=== PATIENT | female | born 1980 | race Caucasian/White ===

== ENCOUNTER 2021-07-25 11:32 | Emergency (ER) | payer OTHER | END 2021-07-25 11:58 | disposition left against medical advice (07) | LOC: M.ERS 11:32 | DX: M79.675 Pain in left toe(s) (principal); Z53.21 Procedure and treatment not carried out due to patient leaving prior to being seen by health care provider ==

== ENCOUNTER 2021-11-22 16:20 | Emergency (ER) | payer OTHER ==
[~2021-11-22] VITALS: Ht 167.6 cm; Wt 78.0 kg
[2021-11-22] MEDS ORDERED: BUDESONIDE0.25 MG/2 INH (17:34)
[2021-11-22] MEDS ORDERED: CLONAZEPAM 0.50.5 M1 PO (17:35)
[2021-11-22] MEDS ORDERED: BUPROPION XL300 MG PO (17:35)
[2021-11-22] MEDS ORDERED: TRAZODONE HCL50 MG PO (17:36)
[2021-11-22] MEDS ORDERED: BUSPIRONE HCL10 MG PO (17:36)
[2021-11-22] MEDS ORDERED: LAMOTRIGINE250 MG PO (17:36)
[2021-11-22] MEDS ORDERED: VITAMIN B-2100 MG PO (17:37)
[2021-11-22] MEDS ORDERED: BUMEX2 MG PO (17:38)
[2021-11-22] MEDS ORDERED: NEURONTIN 400M400 M2 PO (17:39)
[2021-11-22] MEDS ORDERED: NURTEC ODT75 MG PO (17:39)
[2021-11-22] MEDS ORDERED: FARXIGA10 MG PO (17:40)
[2021-11-22] MEDS ORDERED: HYOSCYAMINE0.125 MG PO (17:40)
[2021-11-22] MEDS ORDERED: KLOR-CON M2020 MEQ PO (17:40)
[2021-11-22] MEDS ORDERED: CARISOPRODOL350 MG PO (17:40)
[2021-11-22] MEDS ORDERED: FLONASE 0.05%50 MCG NASAL (17:42)
[2021-11-22] MEDS ORDERED: METOLAZONE 5 MG5 MG PO (17:42)
[2021-11-22] MEDS ORDERED: LOVENOX80 MG/0.8 SUBQ (17:42)
[2021-11-22] MEDS ORDERED: B-12 DOTS500 MCG PO (17:43)
[2021-11-22] MEDS ORDERED: ALBUTEROL2.5 MG/0.1 INH (17:43)
[2021-11-22] MEDS ORDERED: JANTOVEN2 MG PO (17:44)
[2021-11-22] MEDS ORDERED: OCUFLOX5 ML OTIC (17:54)
[2021-11-22 18:03] VITALS: BP 109/66
== END 2021-11-22 18:03 | disposition home or self-care (01) ==
LOC: M.ERS 16:20
DX: S01.312A Laceration without foreign body of left ear, initial encounter (principal); F32.9 Major depressive disorder, single episode, unspecified; G43.909 Migraine, unspecified, not intractable, without status migrainosus; Z86.73 Personal history of transient ischemic attack (TIA), and cerebral infarction without residual deficits; Z79.51 Long term (current) use of inhaled steroids; Z79.899 Other long term (current) drug therapy; Z79.891 Long term (current) use of opiate analgesic; X58.XXXA Exposure to other specified factors, initial encounter; Y93.89 Activity, other specified; Y92.89 Other specified places as the place of occurrence of the external cause; Y99.8 Other external cause status